=== PATIENT | female | born 1965 | race Caucasian/White ===

== ENCOUNTER → 2017-04-06 | Outpatient (CLI) | payer BC | LOC: FIMAGING 08:38 | PROVIDERS: ATTEND Physician Assistant | DX: Z13.820 Encounter for screening for osteoporosis (principal); E55.9 Vitamin D deficiency, unspecified; E03.9 Hypothyroidism, unspecified; E11.9 Type 2 diabetes mellitus without complications; Z78.0 Asymptomatic menopausal state; Z79.899 Other long term (current) drug therapy ==

== ENCOUNTER → 2017-05-29 | Outpatient (CLI) | payer BC | LOC: FIMAGING 09:28 | PROVIDERS: ATTEND Physician Assistant | DX: Z12.31 Encounter for screening mammogram for malignant neoplasm of breast (principal) ==

== ENCOUNTER 2018-02-22 07:32 | Day surgery (SDC) | payer BC ==
[2018-02-22] MEDS ORDERED: ASPIRIN EC 325 MG TAB PO ONE ×2 (07:34→07:52)
[2018-02-22] MEDS ORDERED: NS 1,000 ML IV ONE (07:34)
[2018-02-22] MEDS ORDERED: DIAZEPAM 5 MG TAB PO ONE (07:34)
[2018-02-22] MEDS ORDERED: FAMOTIDINE 20 MG TAB PO ONE (07:34)
[2018-02-22] MEDS ORDERED: diphenhydrAMINE 25 MG CAP PO ONE ×2 (07:34→07:52)
[2018-02-22] MEDS ORDERED: DIAZEPAM 5 MG TAB ONE (07:52)
[2018-02-22] MEDS ORDERED: FAMOTIDINE 20 MG TAB ONE (07:52)
[2018-02-22 08:30] LABS: INR 1.02 (0.83-1.16); PROTIME(PATIENT) 13.6 SEC (12.0-15.0)
[2018-02-22] MEDS ORDERED: LIDOCAINE 1% 300 MG/30 ML SDV ONE (08:45)
[2018-02-22] MEDS ORDERED: fentaNYL 100 MCG/2 ML INJ ONE ×2 (08:46→10:15)
[2018-02-22] MEDS ORDERED: VERAPAMIL 5 MG/2 ML VIAL ONE (08:46)
[2018-02-22] MEDS ORDERED: IOPAMIDOL (ISOVUE-370) 150 ML BTL IV ONE (08:46)
[2018-02-22] MEDS ORDERED: HEPARIN 10,000 UNIT/10 ML MDV (1,000 UNIT/ML) ONE (08:46)
[2018-02-22] MEDS ORDERED: MIDAZOLAM 2 MG/2 ML VIAL ONE ×3 (08:46→10:15)
--- NOTE | 2018-02-22 09:34 | PDPROPOC ---
Sedation Plan of Care Sedation Plan of Care: vital signs stable, mental status noted, patient educated of risks, benefits, alternatives, patient can tolerate sedation ASA Classification: ASA 3 Planned drugs: fentanyl, midazolam Mallampati Score: Class 2 Mallampati Reference Image: Patient passed 3-3-2 rule?: Yes
--- NOTE | 2018-02-22 09:35 | PDHPUP ---
History & Physical Update H&P update statement: This history and physical update is based on an assessment of the patient which was completed after admission or registration (within 24 hours), but prior to the surgery/procedure. H&P update: H&P reviewed & patient examined, changes noted H&P changes: patient has shortness of breath and chest tightness with exertion and at rest CCS class IV
[2018-02-22] MEDS ORDERED: ETOMIDATE 40 MG/20 ML INJ ONE (10:27)
[2018-02-22] MEDS ORDERED: ADENOSINE 90 MG/30 ML VIAL IV ONE (10:39)
[2018-02-22] MEDS ORDERED: ATROPINE SULFATE 1 MG/10 ML SYR ONE (11:21)
[2018-02-22] MEDS ORDERED: NITROGLYCERIN 0.4 MG BTL SL PRN (11:30)
[2018-02-22] MEDS ORDERED: ONDANSETRON 4 MG/2 ML VIAL IVP PRN (11:30)
[2018-02-22] MEDS ORDERED: HYDROCODONE/APAP 5/325 TAB PO PRN (11:30)
[2018-02-22] MEDS ORDERED: ATROPINE SULFATE 1 MG/10 ML SYR IVP PRN (11:30)
--- NOTE | 2018-02-22 12:28 | CPIP ---
DATE OF PROCEDURE: 02/22/2018 PROCEDURE PERFORMED: 1. Right and left heart catheterization. 2. Selective coronary angiography. 3. Left ventriculogram. 4. Vasodilator challenge with adenosine to see if the patient is responsive to a vasodilator challen ge for identified pulmonary hypertension. 5. Manual hold arteriotomy repair. This was a right femoral approach. COMPLICATIONS: None. INDICATIONS/APPROPRIATE USE CRITERIA: The patient has breathlessness with Long Heart Association class III symptoms of shortness of breath with minimal exertion, as well as anginal quality chest di scomfort with CCS class III symptoms of angina with minimal activity as well. A prior stress test wa s negative for myocardial ischemia; however, the patient continues to have symptoms of concern. Has a family history pertinent for mother who had pulmonary hypertension and I was asked to see the patie nt for right and left heart catheterization. PROCEDURE IN DETAIL: After informed consent was obtained, n.p.o. status was confirmed, the region of the right groin was cleaned, prepped, and draped in sterile fashion. Approximately 15 cc of 1% lido sharon was utilized for local anesthesia. A micropuncture set was used to gain access to the right levi perficial femoral artery because of the patient's high bifurcation. A 6-English sheath was placed to the right common femoral artery. This procedure was repeated for the right common femoral vein with a 7-English sheath. The patient then underwent a right heart catheterization. The right atrial pressure was 20/18 with a mean pressure of 13. RV pressure 52/11 with end-diastolic pressure of 20. Initial PA pressure was 72/36 with a mean pressure of 52. Pulmonary capillary wedge pressure was 18/17 with a mean pressure of 15. Saturation run was obtained, documented AO sat of 89.7, PA sat of 70.9, RV sat 77.3, SVC sat 73.4, low right atrium 68.4, IVC 62.4 sat. The Delaney cardiac output prior to the vasodilator challeng e was 4.84. The Delaney cardiac index was 2.51. Because of identifying the patient's pulmonary hypertension, we proceeded with a progressive vasodila tor challenge at 50 mcg/kilos per minute of adenosine with ramp dose to 100, and then 150 mcg/kilos p er minute. With those therapies, the systolic pressure in the PA came down to a low of 50/30 with a mean pressure of 40 at 150 mcg/kilos. The mean pressure did decrease by 12 points, which is greater than 10 and would be considered a positive vasodilator challenge test. Cardiac output by Delaney method increased slightly with vasochallenge from 4.84 to 5.59. We then proceeded with left heart catheterization. The left main coronary lumen is approximately 8 m m in size. It bifurcates into an LAD and circumflex system. There is disease at the LAD diagonal bi furcation with a 30% plaque of the LAD proper after the first and major diagonal take-off. There was HANNAH-3 flow to the distal vessel. The left circumflex arises in its usual location giving rise to 2 important obtuse marginal branches, both of which are free of significant flow-limiting obstruction. The right coronary artery is dominant and 3 mm in size proximally, giving rise to posterior descend ing, as well as a posterolateral ventricular branch. No flow-limiting obstruction of these vessels i s identified. The patient underwent left heart catheterization demonstrating elevated left ventricle end-diastolic pressure measured at 19 mmHg. The patient underwent left ventriculogram in the ROSALES pr ojection demonstrating preserved left ventricular systolic function. Ejection fraction is 65%. No s ignificant mitral regurgitation or aortic stenosis was noted upon pullback across the aortic valve. Visualized portion of the thoracic aorta reveals 3 sinuses of Valsalva most consistent with a trileaf let aortic valve. There is no evidence of bandar aneurysm or dissection, and with pressurized injecti on of the left ventricle, there is no evidence of a left to right shunt at the ventricular level. SUMMARY OF FINDINGS: 1. Normal left ventricular chamber size with preserved left ventricular systolic function. Ejection fraction of 65%. The left ventricular end-diastolic pressure is elevated at 18 to 19 mmHg. No sign ificant mitral regurgitation or aortic stenosis is noted. There is [id number] coronary diseas e most prominently involving the left anterior descending distal to a diagonal take-off. No flow-turk iting obstruction of the coronary circulation is identified. 2. The patient has pulmonary hypertension as defined as a mean pulmonary pressure of greater than 40 . This was responsive to a vasodilator challenge with improvement in the systolic pressure from 72 t o a low of 50 with ramp dose adenosine given at a maximum dose of 175 because of the limits of the in travenous pump. The patient would probably benefit from being evaluated by a pulmonary hypertension expert to help treat their elevated pulmonary artery pressure. It may be prudent to consider a CT pu lmonary angiogram to rule out pulmonary embolus as her echocardiogram for 2016, did not reveal eviden ce of pulmonary hypertension. /[id number]/MODL
[2018-02-22] MEDS ORDERED: KETOROLAC 30 MG/1 ML SDV ONE (14:22)
[2018-02-22] MEDS ORDERED: KETOROLAC 30 MG/1 ML SDV IVP ONE (15:00)
--- NOTE | 2018-02-22 16:32 | CPEKG ---
Test Reason : OPEN Blood Pressure : / mmHG Vent. Rate : 077 BPM Atrial Rate : 077 BPM P-R Int : 132 ms QRS Dur : 097 ms QT Int : 387 ms P-R-T Axes : 026 056 028 degrees QTc Int : 438 ms Sinus rhythm Confirmed by Dario Lira [id number]) on 02/22/2018 4:32:15 PM Referred By: Confirmed By:Dario Lira
== END 2018-02-22 16:22 | disposition home or self-care (01) ==
LOC: FCATH 07:32
PROVIDERS: ATTEND Internal Medicine Cardiovascular Disease
PROC: 4A023N8 Measurement of Cardiac Sampling and Pressure, Bilateral, Percutaneous Approach (ICD-10-PCS; principal; 2018-02-22)
PROC: B2111ZZ Fluoroscopy of Multiple Coronary Arteries using Low Osmolar Contrast (ICD-10-PCS; 2018-02-22)
PROC: B2151ZZ Fluoroscopy of Left Heart using Low Osmolar Contrast (ICD-10-PCS; 2018-02-22)
PROC: 3E033KZ Introduction of Other Diagnostic Substance into Peripheral Vein, Percutaneous Approach (ICD-10-PCS; 2018-02-22)
DX: I25.10 Atherosclerotic heart disease of native coronary artery without angina pectoris (principal); I27.20 Pulmonary hypertension, unspecified; E78.5 Hyperlipidemia, unspecified; E11.9 Type 2 diabetes mellitus without complications; G47.33 Obstructive sleep apnea (adult) (pediatric); K21.9 Gastro-esophageal reflux disease without esophagitis; E66.9 Obesity, unspecified; Z68.41 Body mass index [BMI] 40.0-44.9, adult; Z82.49 Family history of ischemic heart disease and other diseases of the circulatory system
CPT/HCPCS: J0153; J0461; J1200; J1644; J1885; J2250; J3010; Q9967

== ENCOUNTER → 2018-03-15 | Outpatient (CLI) | payer BC | LOC: FIMAGING 14:10 | PROVIDERS: ATTEND Internal Medicine Pulmonary Disease | DX: I27.21 Secondary pulmonary arterial hypertension (principal); I50.810 Right heart failure, unspecified; J45.909 Unspecified asthma, uncomplicated | CPT/HCPCS: 71046; 78582; A9540; A9558 ==

== ENCOUNTER → 2018-05-30 | Outpatient (CLI) | payer BC | LOC: FIMAGING 08:13 | PROVIDERS: ATTEND Physician Assistant | DX: Z12.31 Encounter for screening mammogram for malignant neoplasm of breast (principal) ==